=== PATIENT | male | born 1950 | race Caucasian/White ===

== ENCOUNTER 2017-01-26 23:54 | Observation (INO) | payer BC ==
[~2017-01-26] VITALS: Ht 175.3 cm; Wt 79.4 kg
[2017-01-27] MEDS ORDERED: ASPIRIN 324 MG CHEW PO STA (00:41)
[2017-01-27] MEDS ORDERED: SODIUM CHLORIDE 0.9% 1000ML 1,000 ML IV ONE (00:45)
[2017-01-27] MEDS ORDERED: NITROGLYCERIN OINT 2% 1GM PACKET EXT ONE (00:45)
[2017-01-27 01:14] LABS: BASO % 0.2 %; BASO ABS # 0.03 K/uL (0-0.2); COMPLETE YES; EOS % 1.3 %; HEMATOCRIT 45.7 % (42-52); IG% 0.3 %; LYMPH % 8.3 %; LYMPH ABS # 1.16 K/uL (1.2-3.4); MEAN CELL VOLUME 96.2 fL (80-100); MEAN CORPUSCULAR HEMOGLOBIN 33.7 pg (25-34); MEAN PLATELET VOLUME 9.5 fL (7.4-10.4); MONO % 6.8 %; NEUT % 83.1 %; PLATELET COUNT 282 K/uL (130-400); RED BLOOD COUNT 4.75 M/uL (4.7-6.1); WHITE BLOOD COUNT 13.99 K/uL (4.8-10.8)
[2017-01-27 01:16] LABS: POINT OF CARE TROPONIN I < 0.030 ng/ml (0-0.045)
[2017-01-27] MEDS ORDERED: LSN/10125 PO (01:17)
[2017-01-27] MEDS ORDERED: ATOR-22 PO (01:17)
[2017-01-27 01:38] LABS: ALB/GLOB RATIO 1.2 (0.9-2); BUN/CREATININE RATIO 21.7 (10-20); CALCIUM 9.1 mg/dl (8.5-10.1)
[2017-01-27 01:44] LABS: POTASSIUM 3.7 mmol/L (3.5-5.1)
[2017-01-27] MEDS ORDERED: OPTIRAY 320 IV PRN (01:45)
[2017-01-27 03:09] LABS: URINE APPEARANCE CLEAR (CLEAR); URINE BILIRUBIN NEG (NEG); URINE COLOR YELLOW; URINE NITRITE NEG (NEG); URINE SPECIFIC GRAVITY 1.041 (1.000-1.030); UROBILINOGEN NEG (NEG); ZZUR CULT IF INDIC CLEAN CATCH NO
[2017-01-27 03:11] LABS: MANUAL MICROSCOPIC REQUIRED? NO; REVIEW REQ? NO
[2017-01-27] MEDS ORDERED: ONDANSETRON INJ 2 MG/ML 2 ML VIAL IV PRN (06:00)
[2017-01-27] MEDS ORDERED: ACETAMINOPHEN 325 MG TAB PO PRN (06:00)
[2017-01-27] MEDS ORDERED: NITROGLYCERIN 0.4 MG SL PER TAB CHARGE SL PRN (06:00)
[2017-01-27] MEDS ORDERED: POLYETHYLENE (MIRALAX) 17 GM PACK PO PRN (06:00)
[2017-01-27] MEDS ORDERED: IV FLUIDS COMPLETED PRN (06:00)
[2017-01-27] MEDS ORDERED: MoRPHine SULFATE 2 MG/ML CARP IV PRN (06:00)
[2017-01-27] MEDS ORDERED: MoRPHine SULFATE 2 MG/ML CARP IV STA (06:13)
--- NOTE | 2017-01-27 06:22 | History and Physical ---
History & Physical Date & Time of Service: Jan 27, 2017 at 06:07 Chief Complaint: Chest Pain, More When Breathing Deep Primary Care Physician: Bobby Swanson PA-C, HAYLIE Saez History of Present Illness Source: patient 66 yo M presents with acute anterior chest pain with deep breaths that is constant since 8:30pm. He reports that "it got my attention" and has remained constant since that time. No provoking/palliative factors. He denies associated symptoms of SOB, nausea, vomiting, lightheadedness, sweating, palpitations, etc. He denies any recent colds or other infections. He works as a RT doing homecare and denies any recent concerning exposures from that standpoint. He did report that a colleague recently came down with a viral illness and had a high fever--although he was exposed to her he denies cough, fevers, chills, malaise or any other symptoms. ROS is otherwise negative. He denies a history of chest pain or SOB in the past. He has never had a stress test or other cardiac workup. He is very healthy and active biking 30 miles daily. He is a lifelong non-smoker who leads a healthy lifestyle. His father did have a nonfatal WI in his 50s, however, he was also a heavy smoker. The patient does have HTN and HLP for which he takes medications. In the ER, initial workup is unremarkable aside from a CT chest revealing some small mediastinal lymph nodes. EKG reveals sinus rhythm without ischemia, cardiac markers are negative, and pain was not much better after ASA and nitro. Past Medical/Surgical History Medical Problems: (1) Hearing loss Status: Chronic (2) HTN (hypertension) Status: Chronic (3) Hyperlipidemia Status: Chronic (4) Meniere disease Status: Chronic Family History FH: CAD (coronary artery disease) FATHER Social History Smoking Status: Never Smoker Smokeless Tobacco Use: No Alcohol Use: socially Drug Use: none Marital Status: Housing status: lives with significant other Occupational Status: employed (RT with [employer]) Immunizations History of Influenza Vaccine: Unknown History of Tetanus Vaccine?: Unknown History of Pneumococcal: Unknown History of Hepatitis B Vaccine: Unknown Multi-Drug Resistant Organisms History of MDRO: No Allergies Coded Allergies: No Known Allergies (Unverified , 01/27/17) Home Medications Scheduled Atorvastatin (Lipitor), 20 MG PO DAILY Hctz/Lisinopril (Lisinopril/Hctz 10/12.5 Mg), 1 TAB PO DAILY Review of Systems At least ten systems were reviewed and negative except as indicated in HPI. Physical Exam Vital Signs Date Time Temp Pulse Resp B/P (MAP) Pulse Ox O2 Delivery O2 Flow Rate FiO2 01/27/17 05:18 82 01/27/17 04:39 95 16 107/68 98 Room Air 01/27/17 02:25 100 18 109/65 96 Room Air 01/27/17 00:47 96 Room Air 01/27/17 00:25 93 01/27/17 00:01 37.1 94 22 140/86 94 Room Air General Appearance: WD/WN, no apparent distress Head: normocephalic, atraumatic Eyes: normal inspection, PERRL, sclerae normal ENT: pharynx normal Neck: supple, no adenopathy, trachea midline Respiratory/Chest: chest non-tender, lungs clear, normal breath sounds, no respiratory distress, no accessory muscle use Cardiovascular: regular rate, rhythm, no edema, no gallop, no JVD, no murmur, normal peripheral pulses Abdomen/GI: normal bowel sounds, non tender, soft, no organomegaly Back: normal inspection Extremities/Musculoskelatal: normal inspection, no pedal edema Neurologic/Psych: 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, no motor/sensory deficits, alert, normal mood/affect, oriented x 3 Skin: normal color, warm/dry, no rash Diagnostics Laboratory Results 01/27/17 01:00 Red Blood Count 4.75, Mean Corpuscular Volume 96.2, Mean Corpuscular Hemoglobin 33.7, Mean Corpuscular Hemoglobin Concent 35.0, Mean Platelet Volume 9.5, Neutrophils (%) (Auto) 83.1, Lymphocytes (%) (Auto) 8.3, Monocytes (%) (Auto) 6.8, Eosinophils (%) (Auto) 1.3, Basophils (%) (Auto) 0.2, Neutrophils # (Auto) 11.63, Lymphocytes # (Auto) 1.16, Monocytes # (Auto) 0.95, Eosinophils # (Auto) 0.18, Basophils # (Auto) 0.03 01/27/17 01:00 Test 01/27/17 00:57 01/27/17 01:00 01/27/17 02:45 Bedside D-Dimer 332 ng/mlFEU (0-450) Bedside Troponin I < 0.030 ng/ml (0-0.045) White Blood Count 13.99 K/uL (4.8-10.8) Red Blood Count 4.75 M/uL (4.7-6.1) Hemoglobin 16.0 g/dL (14.0-18.0) Hematocrit 45.7 % (42-52) Mean Corpuscular Volume 96.2 fL (80-100) Mean Corpuscular Hemoglobin 33.7 pg (25-34) Mean Corpuscular Hemoglobin Concent 35.0 g/dl (32-36) Platelet Count 282 K/uL (130-400) Mean Platelet Volume 9.5 fL (7.4-10.4) Neutrophils (%) (Auto) 83.1 % Lymphocytes (%) (Auto) 8.3 % Monocytes (%) (Auto) 6.8 % Eosinophils (%) (Auto) 1.3 % Basophils (%) (Auto) 0.2 % Neutrophils # (Auto) 11.63 K/uL (1.4-6.5) Lymphocytes # (Auto) 1.16 K/uL (1.2-3.4) Monocytes # (Auto) 0.95 K/uL (0.11-0.59) Eosinophils # (Auto) 0.18 K/uL (0-0.5) Basophils # (Auto) 0.03 K/uL (0-0.2) RDW Standard Deviation 42.9 fL (36.4-46.3) RDW Coefficient of Variation 12.2 % (11.5-14.5) Immature Granulocyte % (Auto) 0.3 % Immature Granulocyte # (Auto) 0.04 K/uL (0.00-0.02) Anion Gap 9.0 mmol/L (3-11) Est Creatinine Clear Calc Drug Dose 74.7 ml/min Estimated GFR () 91.8 Estimated GFR (Non- 79.2 BUN/Creatinine Ratio 21.7 (10-20) Calcium Level 9.1 mg/dl (8.5-10.1) Total Bilirubin 0.3 mg/dl (0.2-1) Aspartate Amino Transf (AST/SGOT) 26 U/L (15-37) Alanine Aminotransferase (ALT/SGPT) 33 U/L (12-78) Alkaline Phosphatase 61 U/L (45-117) Total Protein 7.7 gm/dl (6.4-8.2) Albumin 4.2 gm/dl (3.4-5.0) Globulin 3.5 gm/dl (2.5-4.0) Albumin/Globulin Ratio 1.2 (0.9-2) Lipase 177 U/L (73-393) Urine Color YELLOW Urine Appearance CLEAR (CLEAR) Urine pH 5.0 (4.5-7.5) Urine Specific Nordman 1.041 (1.000-1.030) Urine Protein NEG (NEG) Urine Glucose (UA) NEG (NEG) Urine Ketones NEG (NEG) Urine Occult Blood NEG (NEG) Urine Nitrite NEG (NEG) Urine Bilirubin NEG (NEG) Urine Urobilinogen NEG (NEG) Urine Leukocyte Esterase NEG (NEG) Results Past 24 Hours Test 01/27/17 00:57 01/27/17 01:00 01/27/17 02:45 Range/Units Bedside D-Dimer 332 0-450 ng/mlFEU Bedside Troponin I < 0.030 0-0.045 ng/ml White Blood Count 13.99 4.8-10.8 K/uL Red Blood Count 4.75 4.7-6.1 M/uL Hemoglobin 16.0 14.0-18.0 g/dL Hematocrit 45.7 42-52 % Mean Corpuscular Volume 96.2 80-100 fL Mean Corpuscular Hemoglobin 33.7 25-34 pg Mean Corpuscular Hemoglobin Concent 35.0 32-36 g/dl Platelet Count 282 130-400 K/uL Mean Platelet Volume 9.5 7.4-10.4 fL Neutrophils (%) (Auto) 83.1 % Lymphocytes (%) (Auto) 8.3 % Monocytes (%) (Auto) 6.8 % Eosinophils (%) (Auto) 1.3 % Basophils (%) (Auto) 0.2 % Neutrophils # (Auto) 11.63 1.4-6.5 K/uL Lymphocytes # (Auto) 1.16 1.2-3.4 K/uL Monocytes # (Auto) 0.95 0.11-0.59 K/uL Eosinophils # (Auto) 0.18 0-0.5 K/uL Basophils # (Auto) 0.03 0-0.2 K/uL RDW Standard Deviation 42.9 36.4-46.3 fL RDW Coefficient of Variation 12.2 11.5-14.5 % Immature Granulocyte % (Auto) 0.3 % Immature Granulocyte # (Auto) 0.04 0.00-0.02 K/uL Sodium Level 138 136-145 mmol/L Potassium Level 3.7 3.5-5.1 mmol/L Chloride Level 101 98-107 mmol/L Carbon Dioxide Level 28 21-32 mmol/L Anion Gap 9.0 3-11 mmol/L Blood Urea Nitrogen 22 7-18 mg/dl Creatinine 1.00 0.60-1.40 mg/dl Est Creatinine Clear Calc Drug Dose 74.7 ml/min Estimated GFR () 91.8 Estimated GFR (Non- 79.2 BUN/Creatinine Ratio 21.7 10-20 Random Glucose 115 70-99 mg/dl Calcium Level 9.1 8.5-10.1 mg/dl Total Bilirubin 0.3 0.2-1 mg/dl Aspartate Amino Transf (AST/SGOT) 26 15-37 U/L Alanine Aminotransferase (ALT/SGPT) 33 12-78 U/L Alkaline Phosphatase 61 45-117 U/L Total Protein 7.7 6.4-8.2 gm/dl Albumin 4.2 3.4-5.0 gm/dl Globulin 3.5 2.5-4.0 gm/dl Albumin/Globulin Ratio 1.2 0.9-2 Lipase 177 73-393 U/L Urine Color YELLOW Urine Appearance CLEAR CLEAR Urine pH 5.0 4.5-7.5 Urine Specific Nordman 1.041 1.000-1.030 Urine Protein NEG NEG Urine Glucose (UA) NEG NEG Urine Ketones NEG NEG Urine Occult Blood NEG NEG Urine Nitrite NEG NEG Urine Bilirubin NEG NEG Urine Urobilinogen NEG NEG Urine Leukocyte Esterase NEG NEG Diagnostic Radiology CT ANGIOGRAM OF THE CHEST CLINICAL HISTORY: Atypical chest pain. COMPARISON STUDY: Chest x-ray dated 01/27/2017. TECHNIQUE: Following the IV administration of 90 cc of Optiray 320, CT angiogram of the chest was performed from the upper abdomen to the thoracic inlet utilizing the pulmonary embolus protocol. Images are reviewed in the axial, sagittal, and coronal planes. 3-D MIPS images are created and assessed. IV contrast was administered without complication. A dose lowering technique was utilized adhering to the principles of ALARA. Examination is modestly degraded by motion artifact. CT DOSE: 301.02 mGy.cm FINDINGS: Thyroid: Imaged portions of the thyroid gland are normal in size and attenuation. Thoracic aorta: The thoracic aorta is normal in caliber and demonstrates standard 3-vessel arch anatomy. No dissection is seen. Pulmonary vasculature: The pulmonary trunk is normal in caliber. There are no filling defects identified in main, lobar, or segmental pulmonary branches to suggest pulmonary embolus. Heart: The heart is top normal in size and there is trace pericardial effusion. There are coronary artery calcifications. Lungs and pleural spaces: Evaluation of the lung parenchyma is modestly degraded by respiratory motion artifact. There is no airspace consolidation typical for pneumonia or pleural effusion. Bibasilar atelectasis is observed. The trachea and central airways are clear. Mediastinum: There is no mediastinal lymphadenopathy. Meera: Clear. Axillae: There is no axillary lymphadenopathy. Upper abdomen: There is a small hiatal hernia. Scattered hepatic cysts measure up to 1.9 cm. There is an indeterminant low-attenuation lesion in the left lower liver seen on image #50 which measures 3.1 cm. A second 1.6 cm indeterminant hypodensity in the right lobe of the diaphragm on image #79. These lesions do not meet CT criteria for simple cysts. There is a 1.1 cm peripherally calcified splenic artery aneurysm. Skeletal structures: No lytic or blastic bony lesions are seen. Mild degenerative change is seen in the shoulders and thoracic spine. There is mild thoracic scoliosis. IMPRESSION: 1. There is no evidence of pulmonary embolus in the main, lobar, or segmental pulmonary arteries. 2. There is no airspace consolidation or pleural effusion. 3. There are 2 indeterminant hepatic lesions measuring up to 3.1 cm. These do not meet CT criteria for simple cysts. Correlation with an MRI of the liver is recommended for definitive characterization. 4. There is a 1.1 cm peripherally calcified splenic artery aneurysm. 5. Tiny hiatal hernia. SINGLE VIEW CHEST CLINICAL HISTORY: Atypical chest pain. FINDINGS: An AP, portable, upright chest radiograph is obtained. No prior studies are available for comparison at the time of dictation. The examination is degraded by portable technique and patient rotation. The cardiomediastinal silhouette is top normal for projection. There is minimal bibasilar atelectasis. The lungs and pleural spaces are otherwise clear. No pneumothorax is seen. The bony thorax is grossly intact. IMPRESSION: No acute cardiopulmonary abnormality. EKG SR 90, LAFB, no ST changes Impression Assessment and Plan 66 yo M with acute chest pain 1. Chest pain-consistent with pleurisy haleigh in setting of mediastinal lymph nodes on wet read overnight but uncertain etiology. ACS a possibility so will trend enzymes throughout the day. Consider stress test for risk stratification. Risk factors for CAD include family history, HTN and HLP. Liver cysts also present-will consider these a source of discomfort and consider dedicated liver imaging based on clinical progression. Poss etiologies include but not limited to mediastinitis, costochondritis, myositis/strain of pectoralis muscle, other lung pathology?, liver abscess? 2. HTN-at goal, cont home regimen (Lis/HCTZ) 3. HLP-Lipitor DVT proph-Lovenox Full code Dispo-telemetry [facility] Telemetry Resuscitation Status FULL RESUSCITATION VTE Prophylaxis VTE Risk Assessment Done? Y/N: Yes Risk Level: Moderate Given or contraindicated: Enoxaparin (Lovenox)SQ Social Service Consult None Apply
[2017-01-27 07:00] VITALS: BP 106/67; PULSE 85; TEMP 37.3; O2SAT 97; Ht 175.3 cm; Wt 79.4 kg
--- NOTE | 2017-01-27 07:17 | DIAGNOSTIC IMAGING REPORT ---
CT ANGIOGRAM OF THE CHEST CLINICAL HISTORY: Atypical chest pain. COMPARISON STUDY: Chest x-ray dated 01/27/2017. TECHNIQUE: Following the IV administration of 90 cc of Optiray 320, CT angiogram of the chest was performed from the upper abdomen to the thoracic inlet utilizing the pulmonary embolus protocol. Images are reviewed in the axial, sagittal, and coronal planes. 3-D MIPS images are created and assessed. IV contrast was administered without complication. A dose lowering technique was utilized adhering to the principles of ALARA. Examination is modestly degraded by motion artifact. CT DOSE: 301.02 mGy.cm FINDINGS: Thyroid: Imaged portions of the thyroid gland are normal in size and attenuation. Thoracic aorta: The thoracic aorta is normal in caliber and demonstrates standard 3-vessel arch anatomy. No dissection is seen. Pulmonary vasculature: The pulmonary trunk is normal in caliber. There are no filling defects identified in main, lobar, or segmental pulmonary branches to suggest pulmonary embolus. Heart: The heart is top normal in size and there is trace pericardial effusion. There are coronary artery calcifications. Lungs and pleural spaces: Evaluation of the lung parenchyma is modestly degraded by respiratory motion artifact. There is no airspace consolidation typical for pneumonia or pleural effusion. Bibasilar atelectasis is observed. The trachea and central airways are clear. Mediastinum: There is no mediastinal lymphadenopathy. Meera: Clear. Axillae: There is no axillary lymphadenopathy. Upper abdomen: There is a small hiatal hernia. Scattered hepatic cysts measure up to 1.9 cm. There is an indeterminant low-attenuation lesion in the left lower liver seen on image #50 which measures 3.1 cm. A second 1.6 cm indeterminant hypodensity in the right lobe of the diaphragm on image #79. These lesions do not meet CT criteria for simple cysts. There is a 1.1 cm peripherally calcified splenic artery aneurysm. Skeletal structures: No lytic or blastic bony lesions are seen. Mild degenerative change is seen in the shoulders and thoracic spine. There is mild thoracic scoliosis. IMPRESSION: 1. There is no evidence of pulmonary embolus in the main, lobar, or segmental pulmonary arteries. 2. There is no airspace consolidation or pleural effusion. 3. There are 2 indeterminant hepatic lesions measuring up to 3.1 cm. These do not meet CT criteria for simple cysts. Correlation with an MRI of the liver is recommended for definitive characterization. 4. There is a 1.1 cm peripherally calcified splenic artery aneurysm. 5. Tiny hiatal hernia. Electronically signed by: Lam Lu M.D. 01/27/2017 7:16 AM Dictated Date/Time: 01/27/2017 7:10 AM
--- NOTE | 2017-01-27 07:37 | DIAGNOSTIC IMAGING REPORT ---
SINGLE VIEW CHEST CLINICAL HISTORY: Atypical chest pain. FINDINGS: An AP, portable, upright chest radiograph is obtained. No prior studies are available for comparison at the time of dictation. The examination is degraded by portable technique and patient rotation. The cardiomediastinal silhouette is top normal for projection. There is minimal bibasilar atelectasis. The lungs and pleural spaces are otherwise clear. No pneumothorax is seen. The bony thorax is grossly intact. IMPRESSION: No acute cardiopulmonary abnormality. Electronically signed by: Lam Lu M.D. 01/27/2017 7:36 AM Dictated Date/Time: 01/27/2017 7:35 AM
[2017-01-27 07:55] LABS: PROTHROMBIN TIME (PATIENT) 10.5 SECONDS (9.0-12.0)
[2017-01-27 08:04] LABS: CKMB/CK RATIO 2.8 (0-3.0)
[2017-01-27] MEDS ORDERED: INFLUENZA VIRUS QUAD VACCINE 0.5 ML SYR IM. ONE (08:30)
[2017-01-27] MEDS ORDERED: INFLUENZA ADMINISTRATION CHARGE ONE (08:30)
[2017-01-27] MEDS ORDERED: ASPIRIN 81 MG ECTAB PO SCH (09:00)
[2017-01-27] MEDS ORDERED: LISINOPRIL/HCTZ 10/12.5MG TAB PO SCH (09:00)
[2017-01-27] MEDS ORDERED: ATORVASTATIN 20 MG TAB PO SCH (09:00)
[2017-01-27] MEDS ORDERED: ENOXAPARIN 40 MG/0.4 ML SYR SC SCH (09:00)
[2017-01-27] MEDS ORDERED: IBUPROFEN 600 MG TAB PO ONE (10:29)
[2017-01-27 11:06] VITALS: BP 115/71; PULSE 86; TEMP 37.1; O2SAT 98
[2017-01-27 13:20] LABS: HEMATOCRIT 37.8 % (42-52); MEAN CELL VOLUME 94.7 fL (80-100); MEAN CORPUSCULAR HEMOGLOBIN 33.8 pg (25-34); MEAN CORPUSCULAR HGB CONC 35.7 g/dl (32-36); MEAN PLATELET VOLUME 9.1 fL (7.4-10.4); PLATELET COUNT 226 K/uL (130-400); RED BLOOD COUNT 3.99 M/uL (4.7-6.1); WHITE BLOOD COUNT 9.44 K/uL (4.8-10.8)
[2017-01-27 13:48] LABS: CKMB/CK RATIO 2.6 (0-3.0)
--- NOTE | 2017-01-27 14:40 | ECHOCARDIOGRAM REPORT ---
*NOTICE TO RECEIVING LIBERTARIAN AGENCY This information is strictly Confidential and protected under [place] law. [place] law prohibits you from making any further disclosure of this information unless further disclosure is expressly permitted by the written consent of the person to whom it pertains or is authorized by law. A general authorization for the release of medical or other information is not sufficient for this purpose. Hospital accepts no responsibility if the information is made available to any other person, INCLUDING THE PATIENT. Interpretation Summary * Name: RJ AHUMADA Study Date: 01/27/2017 11:18 AM BP: 106/67 mmHg * Patient Location: [facility]\S\N275\S\2 HR: 85 * : 1950 (M/d/yyyy) Gender: Male Height: 69 in * Age: 66 yrs Ethnicity: CA Weight: 175 lb * Ordering Physician: Murphy Baca * Referring Physician: Self, Referred * Performed By: Chaya Hubbard RDCS * * Reason For Study: Chest pain * BSA: 2.0 m2 * -- Conclusions -- * The left ventricle is normal in size. * There is normal left ventricular wall thickness. * The left ventricular wall motion is normal. * Ejection Fraction = 65-70%. * Grade I diastolic dysfunction, (abnormal relaxation pattern). * Mild aortic root dilatation. * Aortic valve sclerosis mild, without significant aortic valvular stenosis. * There is mild tricuspid regurgitation. Procedure Details * A complete two-dimensional transthoracic echocardiogram was performed (2D, M-mode, Doppler and color flow Doppler). Left Ventricle * The left ventricle is normal in size. * There is normal left ventricular wall thickness. * Ejection Fraction = 65-70%. * Left ventricular systolic function is normal. * The left ventricular wall motion is normal. Right Ventricle * The right ventricle is normal in size and function. Atria * The left atrial size is normal. * Right atrial size is normal. * No ASD detected; PFO is not assessed. Mitral Valve * The mitral valve anatomy is normal. * There is no mitral valve stenosis. * There is trace mitral regurgitation. Tricuspid Valve * The tricuspid valve anatomy is normal. * There is no tricuspid stenosis. * There is mild tricuspid regurgitation. * Doppler findings do not suggest pulmonary hypertension. Aortic Valve * The aortic valve is trileaflet. * Aortic valve sclerosis mild, without significant aortic valvular stenosis. * No hemodynamically significant valvular aortic stenosis. * No aortic regurgitation is present. Pulmonic Valve * The pulmonic valve is not well visualized. Great Vessels * Mild aortic root dilatation. Pericardium/Pleural * There is no pericardial effusion. Great Vessels * Normal inferior vena cava diameter and respiratory variation suggests normal central venous pressure. Left Ventricular Diastolic Function * Grade I diastolic dysfunction, (abnormal relaxation pattern). MMode 2D Measurements and Calculations IVSd 0.95 cm LVIDd 5.5 cm LVIDs 3.2 cm LVPWd 1.0 cm IVS/LVPW 0.93 FS 40.6 % EDV(Teich) 145.3 ml ESV(Teich) 42.4 ml EF(Teich) 70.8 % EDV(cubed) 163.3 ml ESV(cubed) 34.2 ml EF(cubed) 79.1 % LV mass(C)d 208.5 grams LV mass(C)dI 106.8 grams/m\S\2 SV(Teich) 102.9 ml SI(Teich) 52.7 ml/m\S\2 SV(cubed) 129.1 ml SI(cubed) 66.1 ml/m\S\2 Ao root diam 4.2 cm Ao root area 13.6 cm\S\2 ACS 1.8 cm LA dimension 3.6 cm asc Aorta Diam 3.3 cm LA/Ao 0.86 LVOT diam 2.0 cm LVOT area 3.0 cm\S\2 LVAd ap4 24.5 cm\S\2 LVLd ap4 6.8 cm EDV(MOD-sp4) 72.9 ml EDV(sp4-el) 75.2 ml LVAs ap4 11.8 cm\S\2 LVLs ap4 6.0 cm ESV(MOD-sp4) 19.8 ml ESV(sp4-el) 19.6 ml EF(MOD-sp4) 72.8 % EF(sp4-el) 73.9 % LVAd ap2 22.0 cm\S\2 LVLd ap2 6.4 cm EDV(MOD-sp2) 60.6 ml EDV(sp2-el) 64.2 ml LVAs ap2 11.0 cm\S\2 LVLs ap2 5.4 cm ESV(MOD-sp2) 18.8 ml ESV(sp2-el) 19.0 ml EF(MOD-sp2) 69.0 % EF(sp2-el) 70.4 % LVLd %diff -6.01 % EDV(MOD-bp) 67.4 ml LVLs %diff -11.97 % ESV(MOD-bp) 20.0 ml EF(MOD-bp) 70.3 % SV(MOD-sp4) 53.1 ml SI(MOD-sp4) 27.2 ml/m\S\2 SV(MOD-sp2) 41.8 ml SI(MOD-sp2) 21.4 ml/m\S\2 SV(MOD-bp) 47.4 ml SI(MOD-bp) 24.3 ml/m\S\2 SV(sp4-el) 55.5 ml SI(sp4-el) 28.4 ml/m\S\2 SV(sp2-el) 45.2 ml SI(sp2-el) 23.2 ml/m\S\2 Doppler Measurements and Calculations MV E max agustín 73.9 cm/sec MV A max agustín 90.6 cm/sec MV E/A 0.82 MV dec time 0.17 sec Ao V2 max 150.1 cm/sec Ao max PG 9.0 mmHg Ao max PG (full) 4.1 mmHg JUAN(V,A) 2.2 cm\S\2 JUAN(V,D) 2.2 cm\S\2 LV V1 max PG 4.9 mmHg LV V1 max 110.8 cm/sec PA V2 max 106.1 cm/sec PA max PG 4.5 mmHg PA acc slope 505.9 cm/sec\S\2 PA acc time 0.15 sec PI max agustín 153.6 cm/sec PI max PG 9.4 mmHg PI dec slope 225.4 cm/sec\S\2 PI P1/2t 199.6 msec TR max agustín 243.1 cm/sec PA pr(Accel) 12.3 mmHg
--- NOTE | 2017-01-27 14:54 | Progress Note ---
Internal Med Progress Note Date of Service: Jan 27, 2017. Provider Documentation: SUBJECTIVE: The patient was seen and examined Admitted with what sounds like pleurisy Very active person otherwise without any cardiac symptoms OBJECTIVE: Vital Signs-as noted below Exam: General-No distress at rest Eyes-normal ENT-normal Neck-supple Lungs-Clear to auscultate bilaterally Heart-Regular,no murmur Abdomen-Benign,no masses,bowel sound present Extremities-NO edema Neuro-AAOx3 NO focal neuro deficit Lab data as noted below. ASSESSMENT & PLAN: 66 yo M with acute chest pain Pleurisy Exacerbates with deep breathing CTA-negative for any PE and or 0ther new abnormalities Serial Cheo negative for any ACS ECHO::The left ventricle is normal in size. * There is normal left ventricular wall thickness. * The left ventricular wall motion is normal. * Ejection Fraction = 65-70%. * Grade I diastolic dysfunction, (abnormal relaxation pattern). * Mild aortic root dilatation. * Aortic valve sclerosis mild, without significant aortic valvular stenosis. * There is mild tricuspid regurgitation. Pain resolved with NSAID Will discharged home this PM WCC -improved ,no signs of infection Liver Lesion and Minimal Splenic artery aneurysm In CTA Old finding Will have usual follow up HTN-at goal, cont home regimen (Lis/HCTZ) HLP-Lipitor May have myositis from Statin DVT proph-Lovenox Full code Dispo-telemetry Discharge home this afternoon Vital Signs: Date Time Temp Pulse Resp B/P (MAP) Pulse Ox O2 Delivery O2 Flow Rate FiO2 01/27/17 12:15 Room Air 01/27/17 11:06 37.1 86 18 115/71 (86) 98 Room Air 01/27/17 08:15 Room Air 01/27/17 07:00 37.3 85 18 106/67 97 Room Air 01/27/17 05:18 82 01/27/17 04:39 95 16 107/68 98 Room Air 01/27/17 02:25 100 18 109/65 96 Room Air 01/27/17 00:47 96 Room Air 01/27/17 00:25 93 01/27/17 00:01 37.1 94 22 140/86 94 Room Air Lab Results: Results Past 24 Hours Test 01/27/17 00:57 01/27/17 01:00 01/27/17 02:45 10/6/17 07:22 Range/Units Bedside D-Dimer 332 0-450 ng/mlFEU Bedside Troponin I < 0.030 0-0.045 ng/ml White Blood Count 13.99 4.8-10.8 K/uL Red Blood Count 4.75 4.7-6.1 M/uL Hemoglobin 16.0 14.0-18.0 g/dL Hematocrit 45.7 42-52 % Mean Corpuscular Volume 96.2 80-100 fL Mean Corpuscular Hemoglobin 33.7 25-34 pg Mean Corpuscular Hemoglobin Concent 35.0 32-36 g/dl Platelet Count 282 130-400 K/uL Mean Platelet Volume 9.5 7.4-10.4 fL Neutrophils (%) (Auto) 83.1 % Lymphocytes (%) (Auto) 8.3 % Monocytes (%) (Auto) 6.8 % Eosinophils (%) (Auto) 1.3 % Basophils (%) (Auto) 0.2 % Neutrophils # (Auto) 11.63 1.4-6.5 K/uL Lymphocytes # (Auto) 1.16 1.2-3.4 K/uL Monocytes # (Auto) 0.95 0.11-0.59 K/uL Eosinophils # (Auto) 0.18 0-0.5 K/uL Basophils # (Auto) 0.03 0-0.2 K/uL RDW Standard Deviation 42.9 36.4-46.3 fL RDW Coefficient of Variation 12.2 11.5-14.5 % Immature Granulocyte % (Auto) 0.3 % Immature Granulocyte # (Auto) 0.04 0.00-0.02 K/uL Sodium Level 138 136-145 mmol/L Potassium Level 3.7 3.5-5.1 mmol/L Chloride Level 101 98-107 mmol/L Carbon Dioxide Level 28 21-32 mmol/L Anion Gap 9.0 3-11 mmol/L Blood Urea Nitrogen 22 7-18 mg/dl Creatinine 1.00 0.60-1.40 mg/dl Est Creatinine Clear Calc Drug Dose 74.7 ml/min Estimated GFR () 91.8 Estimated GFR (Non- 79.2 BUN/Creatinine Ratio 21.7 10-20 Random Glucose 115 70-99 mg/dl Calcium Level 9.1 8.5-10.1 mg/dl Total Bilirubin 0.3 0.2-1 mg/dl Aspartate Amino Transf (AST/SGOT) 26 15-37 U/L Alanine Aminotransferase (ALT/SGPT) 33 12-78 U/L Alkaline Phosphatase 61 45-117 U/L Total Protein 7.7 6.4-8.2 gm/dl Albumin 4.2 3.4-5.0 gm/dl Globulin 3.5 2.5-4.0 gm/dl Albumin/Globulin Ratio 1.2 0.9-2 Lipase 177 73-393 U/L Urine Color YELLOW Urine Appearance CLEAR CLEAR Urine pH 5.0 4.5-7.5 Urine Specific [place] 1.041 1.000-1.030 Urine Protein NEG NEG Urine Glucose (UA) NEG NEG Urine Ketones NEG NEG Urine Occult Blood NEG NEG Urine Nitrite NEG NEG Urine Bilirubin NEG NEG Urine Urobilinogen NEG NEG Urine Leukocyte Esterase NEG NEG Prothrombin Time 10.5 9.0-12.0 SECONDS Prothromb Time International Ratio 1.0 0.9-1.1 Total Creatine Kinase 54 39-308 U/L Creatine Kinase MB 1.5 0.5-3.6 ng/ml Creatine Kinase MB Ratio 2.8 0-3.0 Troponin I < 0.015 0-0.045 ng/ml Hepatitis C Antibody Screen NEG NEG Test 01/27/17 13:03 Range/Units White Blood Count 9.44 4.8-10.8 K/uL Red Blood Count 3.99 4.7-6.1 M/uL Hemoglobin 13.5 14.0-18.0 g/dL Hematocrit 37.8 42-52 % Mean Corpuscular Volume 94.7 80-100 fL Mean Corpuscular Hemoglobin 33.8 25-34 pg Mean Corpuscular Hemoglobin Concent 35.7 32-36 g/dl RDW Standard Deviation 42.2 36.4-46.3 fL RDW Coefficient of Variation 12.3 11.5-14.5 % Platelet Count 226 130-400 K/uL Mean Platelet Volume 9.1 7.4-10.4 fL Total Creatine Kinase 57 39-308 U/L Creatine Kinase MB 1.5 0.5-3.6 ng/ml Creatine Kinase MB Ratio 2.6 0-3.0 Troponin I < 0.015 0-0.045 ng/ml
--- NOTE | 2017-01-27 14:56 | Discharge Instructions ---
Discharge Instructions Date of Service Jan 27, 2017. Admission Reason for Admission: Chest Pain Discharge Discharge Diagnosis / Problem: Pleuritic Chest pain-resolved,No Pul Embolism and or pericarditis/ACS Discharge Goals Goal(s): Prevent Disease Progression Activity Recommendations Activity Limitations: resume your previous activity . Instructions / Follow-Up Instructions / Follow-Up Please make an appointment with your PCP in 1 week Current Hospital Diet Patient's current hospital diet: AHA Diet (Heart Healthy) Discharge Diet Recommended Diet: AHA Diet (Heart Healthy) Pending Studies Studies pending at discharge: no Medical Emergencies . Who to Call and When: Medical Emergencies: If at any time you feel your situation is an emergency, please call 911 immediately. . Non-Emergent Contact Non-Emergency issues call your: Primary Care Provider . Past History Medical & Surgical History: (1) HTN (hypertension) (2) Hyperlipidemia (3) Hearing loss (4) Chest pain . "Provider Documentation" section prepared by Murphy Baca. . VTE Core Measure Inpt VTE Proph given/why not?: Enoxaparin (Lovenox)SQ
[2017-01-27 15:03] VITALS: BP 115/71; PULSE 86; TEMP 37.1; O2SAT 98
[2017-01-27] MEDS ORDERED: IBUPROFEN 600 MG TAB PO SCH (16:00)
--- NOTE | 2017-01-28 06:38 | EMERGENCY ROOM VISIT NOTE ---
History First contact with patient: 00:13 Chief Complaint: CHEST PAIN Stated Complaint: CHEST PAIN Nursing Triage Summary: see triage note History of Present Illness The patient is a 66 year old male who presents to the Emergency Room with complaints of chest pain over the past day. The patient's symptoms initially began underneath the left shoulder anteriorly. He states that the discomfort slowly migrated across the front of his chest and worsens with deep inspiration. The patient's primary discomfort is central in the chest and does not radiate. He does not have lightheadedness, dizziness, neck pain, jaw pain, back pain, or abdominal pain. The patient is usually very active, and will often cycle 20-30 miles on the weekends. He has a history of dyslipidemia and hypertension but no other significant risk factors himself. There is a family history of myocardial infarction at a very young age with his father. The patient has not had recent travel history or history of DVT/PE. No recent illness such as fever or URI symptoms. 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 He rates his current discomfort a 5/ 10. He does not identify other aggravating or alleviating factors. Review of Systems More than 10 systems were reviewed and otherwise negative with the exception of history of present illness. 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 Vital signs stable. GENERAL: Well-developed, well-nourished, white male, who is in no acute distress and resting comfortably. Patient is cooperative with the examination. NECK: Supple without nuchal rigidity. No lymphadenopathy. No thyromegaly. Cervical spine is nontender. HEART: Regular rate and rhythm without murmurs gallops or rubs. LUNGS: Clear to auscultation bilaterally without wheezes, rales or rhonchi. No retractions or accessory muscle use. CHEST WALL: Mild tenderness across the anterior superior chest wall. No crepitus or flail chest. No rash or significant lesions. ABDOMEN: Positive normal bowel sounds x 4. Soft, nontender, without masses or organomegaly. No guarding or rebound tenderness. MUSCULOSKELETAL: No muscle atrophy, erythema, or edema noted. Full range of motion without joint tenderness in all extremities. Medical Decision & Procedures ER Provider Diagnostic Interpretation: SINGLE VIEW CHEST CLINICAL HISTORY: Atypical chest pain. FINDINGS: An AP, portable, upright chest radiograph is obtained. No prior studies are available for comparison at the time of dictation. The examination is degraded by portable technique and patient rotation. The cardiomediastinal silhouette is top normal for projection. There is minimal bibasilar atelectasis. The lungs and pleural spaces are otherwise clear. No pneumothorax is seen. The bony thorax is grossly intact. IMPRESSION: No acute cardiopulmonary abnormality. CT ANGIOGRAM OF THE CHEST CLINICAL HISTORY: Atypical chest pain. COMPARISON STUDY: Chest x-ray dated 01/27/2017. TECHNIQUE: Following the IV administration of 90 cc of Optiray 320, CT angiogram of the chest was performed from the upper abdomen to the thoracic inlet utilizing the pulmonary embolus protocol. Images are reviewed in the axial, sagittal, and coronal planes. 3-D MIPS images are created and assessed. IV contrast was administered without complication. A dose lowering technique was utilized adhering to the principles of ALARA. Examination is modestly degraded by motion artifact. CT DOSE: 301.02 mGy.cm FINDINGS: Thyroid: Imaged portions of the thyroid gland are normal in size and attenuation. Thoracic aorta: The thoracic aorta is normal in caliber and demonstrates standard 3-vessel arch anatomy. No dissection is seen. Pulmonary vasculature: The pulmonary trunk is normal in caliber. There are no filling defects identified in main, lobar, or segmental pulmonary branches to suggest pulmonary embolus. Heart: The heart is top normal in size and there is trace pericardial effusion. There are coronary artery calcifications. Lungs and pleural spaces: Evaluation of the lung parenchyma is modestly degraded by respiratory motion artifact. There is no airspace consolidation typical for pneumonia or pleural effusion. Bibasilar atelectasis is observed. The trachea and central airways are clear. Mediastinum: There is no mediastinal lymphadenopathy. Meera: Clear. Axillae: There is no axillary lymphadenopathy. Upper abdomen: There is a small hiatal hernia. Scattered hepatic cysts measure up to 1.9 cm. There is an indeterminant low-attenuation lesion in the left lower liver seen on image #50 which measures 3.1 cm. A second 1.6 cm indeterminant hypodensity in the right lobe of the diaphragm on image #79. These lesions do not meet CT criteria for simple cysts. There is a 1.1 cm peripherally calcified splenic artery aneurysm. Skeletal structures: No lytic or blastic bony lesions are seen. Mild degenerative change is seen in the shoulders and thoracic spine. There is mild thoracic scoliosis. IMPRESSION: 1. There is no evidence of pulmonary embolus in the main, lobar, or segmental pulmonary arteries. 2. There is no airspace consolidation or pleural effusion. 3. There are 2 indeterminant hepatic lesions measuring up to 3.1 cm. These do not meet CT criteria for simple cysts. Correlation with an MRI of the liver is recommended for definitive characterization. 4. There is a 1.1 cm peripherally calcified splenic artery aneurysm. 5. Tiny hiatal hernia. Laboratory Results 01/27/17 01:00 Test 01/27/17 00:57 01/27/17 01:00 01/27/17 02:45 Bedside D-Dimer 332 ng/mlFEU (0-450) Bedside Troponin I < 0.030 ng/ml (0-0.045) Immature Granulocyte % (Auto) 0.3 % White Blood Count 13.99 K/uL (4.8-10.8) Red Blood Count 4.75 M/uL (4.7-6.1) Hemoglobin 16.0 g/dL (14.0-18.0) Hematocrit 45.7 % (42-52) Mean Corpuscular Volume 96.2 fL (80-100) Mean Corpuscular Hemoglobin 33.7 pg (25-34) Mean Corpuscular Hemoglobin Concent 35.0 g/dl (32-36) Platelet Count 282 K/uL (130-400) Mean Platelet Volume 9.5 fL (7.4-10.4) Neutrophils (%) (Auto) 83.1 % Lymphocytes (%) (Auto) 8.3 % Monocytes (%) (Auto) 6.8 % Eosinophils (%) (Auto) 1.3 % Basophils (%) (Auto) 0.2 % Neutrophils # (Auto) 11.63 K/uL (1.4-6.5) Lymphocytes # (Auto) 1.16 K/uL (1.2-3.4) Monocytes # (Auto) 0.95 K/uL (0.11-0.59) Eosinophils # (Auto) 0.18 K/uL (0-0.5) Basophils # (Auto) 0.03 K/uL (0-0.2) Immature Granulocyte # (Auto) 0.04 K/uL (0.00-0.02) Anion Gap 9.0 mmol/L (3-11) Est Creatinine Clear Calc Drug Dose 74.7 ml/min Estimated GFR () 91.8 Estimated GFR (Non- 79.2 BUN/Creatinine Ratio 21.7 (10-20) Calcium Level 9.1 mg/dl (8.5-10.1) Total Bilirubin 0.3 mg/dl (0.2-1) Aspartate Amino Transf (AST/SGOT) 26 U/L (15-37) Alanine Aminotransferase (ALT/SGPT) 33 U/L (12-78) Alkaline Phosphatase 61 U/L (45-117) Total Protein 7.7 gm/dl (6.4-8.2) Albumin 4.2 gm/dl (3.4-5.0) Globulin 3.5 gm/dl (2.5-4.0) Albumin/Globulin Ratio 1.2 (0.9-2) Lipase 177 U/L (73-393) Urine Color YELLOW Urine Appearance CLEAR (CLEAR) Urine pH 5.0 (4.5-7.5) Urine Specific [place] 1.041 (1.000-1.030) Urine Protein NEG (NEG) Urine Glucose (UA) NEG (NEG) Urine Ketones NEG (NEG) Urine Occult Blood NEG (NEG) Urine Nitrite NEG (NEG) Urine Bilirubin NEG (NEG) Urine Urobilinogen NEG (NEG) Urine Leukocyte Esterase NEG (NEG) Medications Administered Medications (Trade) Dose Ordered Sig/Yvan Route Start Time Stop Time Status Last Admin Dose Admin Sodium Chloride 1,000 ml @ 999 mls/hr Q1H1M ONCE IV 01/27/17 00:45 01/27/17 01:45 DC 01/27/17 00:57 999 MLS/HR Aspirin (Aspirin Chew) 324 mg NOW STAT PO 01/27/17 00:41 01/27/17 00:43 DC 01/27/17 01:02 324 MG Nitroglycerin (Nitroglycerin 2% Oint) 1 inch NOW ONCE EXT 01/27/17 00:45 01/27/17 00:46 DC 01/27/17 01:03 1 INCH ECG Change: Normal sinus rhythm @90bpm Left axis deviation Left anterior fascicular block Abnormal ECG No previous ECGs available Confirmed by JENSEN LINO MD ([id number]) on 01/27/2017 5:19:32 PM ED Course Physical exam and history were performed. Nursing notes, EMR, and Medication List were personally reviewed. Patient appears to have chest pain symptoms that initially began on the left side of the chest and now more in the upper border of the chest. The patient is usually healthy and has not had symptoms like this in the past. EKG was performed and does not show evidence of distinct ST elevation or obvious ischemia. IV access was established and labs were obtained. Chest x-ray was performed. The patient's blood work is as above and was reviewed. He does have an elevated white blood cell count of nearly 14,000. He does not have significant anemia, bandemia, or gross electrolyte imbalance. Lipase and transaminases are nondiagnostic. Troponin and d-dimer 1 are both negative. I did provide him aspirin and Nitropaste here in the department. Because of his elevated white blood cell count and chest pain I did elect to perform CT scan of his chest. CT scan is as above and is without significant acute findings at this time. The patient did have some improvement of his pain with the aspirin and Nitropaste. I had a lengthy discussion with the patient regarding options of care. He does have some risk factors with hypertension and dyslipidemia. There is also a cardiac history in the family. The patient is comfortable with staying in the hospital for further management. I did discuss the case with the on-call hospitalist. Please see their dictation for further patient course, plan, and disposition. The chart was completed utilizing [employer] Speech Voice Recognition Software. Grammatical errors, random word insertions, pronoun errors, and incomplete sentences are an occasional consequence of this system due to software limitations, ambient noise, and hardware issues. Any formal questions or concerns about the content, text, or information contained within the body of this dictation should be directly addressed to the provider for clarification. . Medical Decision Differential diagnosis includes, but is not limited to: Myocardial infarction, dysrhythmia, pericarditis, pneumothorax, aortic aneurysm/dissection, DVT/PE, anxiety, GERD, PUD, electrolyte imbalance, thyroid disorder, pneumonia, bronchitis, pancreatitis, and others Impression Primary Impression: Chest pain Departure Information Dispostion Admitted as an inpatient Condition FAIR Referrals No Doctor, Assigned (PCP) Forms Call Back Authorization, HOME CARE DOCUMENTATION FORM, IMPORTANT VISIT INFORMATION Patient Instructions [facility]
--- NOTE | 2017-01-28 08:10 | Discharge Summary ---
Discharge Summary Date of Service Jan 28, 2017. Discharge Summary Admission Date: Jan 27, 2017 at 05:38 Discharge Date: Jan 27, 2017 Discharge Disposition: Home Principal Diagnosis: Pleuritic Chest pain-resolved,No Pul Embolism and or pericarditis/ACS Secondary Diagnoses/Problems: Please see H&P and Hospital Progress note Medication Reconciliation Continued Medications: Atorvastatin (Lipitor) 20 Mg Tab 20 MG PO DAILY, TAB Hctz/Lisinopril (Lisinopril/Hctz 10/12.5 Mg) 1 Ea Tab 1 TAB PO DAILY for 30 Days, #30 TAB 5 Refills Admission Information HPI (per Admitting provider): 66 yo M presents with acute anterior chest pain with deep breaths that is constant since 8:30pm. He reports that "it got my attention" and has remained constant since that time. No provoking/palliative factors. He denies associated symptoms of SOB, nausea, vomiting, lightheadedness, sweating, palpitations, etc. He denies any recent colds or other infections. He works as a RT doing homecare and denies any recent concerning exposures from that standpoint. He did report that a colleague recently came down with a viral illness and had a high fever--although he was exposed to her he denies cough, fevers, chills, malaise or any other symptoms. ROS is otherwise negative. He denies a history of chest pain or SOB in the past. He has never had a stress test or other cardiac workup. He is very healthy and active biking 30 miles daily. He is a lifelong non-smoker who leads a healthy lifestyle. His father did have a nonfatal LA in his 50s, however, he was also a heavy smoker. The patient does have HTN and HLP for which he takes medications. In the ER, initial workup is unremarkable aside from a CT chest revealing some small mediastinal lymph nodes. EKG reveals sinus rhythm without ischemia, cardiac markers are negative, and pain was not much better after ASA and nitro. Past Medical/Surgical History Medical Problems: (1) Hearing loss Status: Chronic (2) HTN (hypertension) Status: Chronic (3) Hyperlipidemia Status: Chronic (4) Meniere disease Status: Chronic Family History FH: CAD (coronary artery disease) FATHER Social History Smoking Status: Never Smoker Smokeless Tobacco Use: No Alcohol Use: socially Drug Use: none Marital Status: Housing status: lives with significant other Occupational Status: employed (RT with [employer]) Immunizations History of Influenza Vaccine: Unknown History of Tetanus Vaccine?: Unknown History of Pneumococcal: Unknown History of Hepatitis B Vaccine: Unknown Multi-Drug Resistant Organisms History of MDRO: No Allergies Coded Allergies: No Known Allergies (Unverified , 01/27/17) Home Medications Scheduled Atorvastatin (Lipitor), 20 MG PO DAILY Hctz/Lisinopril (Lisinopril/Hctz 10/12.5 Mg), 1 TAB PO DAILY Review of Systems At least ten systems were reviewed and negative except as indicated in HPI. Physical Ex - H&P Physical Exam Vital Signs Date Time Temp Pulse Resp B/P (MAP) Pulse Ox O2 Delivery O2 Flow Rate FiO2 01/27/17 05:18 82 01/27/17 04:39 95 16 107/68 98 Room Air 01/27/17 02:25 100 18 109/65 96 Room Air 01/27/17 00:47 96 Room Air 01/27/17 00:25 93 01/27/17 00:01 37.1 94 22 140/86 94 Room Air General Appearance: WD/WN, no apparent distress Head: normocephalic, atraumatic Eyes: normal inspection, PERRL, sclerae normal ENT: pharynx normal Neck: supple, no adenopathy, trachea midline Respiratory/Chest: chest non-tender, lungs clear, normal breath sounds, no respiratory distress, no accessory muscle use Cardiovascular: regular rate, rhythm, no edema, no gallop, no JVD, no murmur, normal peripheral pulses Abdomen/GI: normal bowel sounds, non tender, soft, no organomegaly Back: normal inspection Extremities/Musculoskelatal: normal inspection, no pedal edema Neurologic/Psych: camp director II-XII nml as tested, no motor/sensory deficits, alert, normal mood/affect, oriented x 3 Skin: normal color, warm/dry, no rash Diagnostics - H&P Diagnostics Laboratory Results 01/27/17 01:00 Red Blood Count 4.75, Mean Corpuscular Volume 96.2, Mean Corpuscular Hemoglobin 33.7, Mean Corpuscular Hemoglobin Concent 35.0, Mean Platelet Volume 9.5, Neutrophils (%) (Auto) 83.1, Lymphocytes (%) (Auto) 8.3, Monocytes (%) (Auto) 6.8, Eosinophils (%) (Auto) 1.3, Basophils (%) (Auto) 0.2, Neutrophils # (Auto) 11.63, Lymphocytes # (Auto) 1.16, Monocytes # (Auto) 0.95, Eosinophils # (Auto) 0.18, Basophils # (Auto) 0.03 01/27/17 01:00 Test 01/27/17 00:57 01/27/17 01:00 01/27/17 02:45 Bedside D-Dimer 332 ng/mlFEU (0-450) Bedside Troponin I < 0.030 ng/ml (0-0.045) White Blood Count 13.99 K/uL (4.8-10.8) Red Blood Count 4.75 M/uL (4.7-6.1) Hemoglobin 16.0 g/dL (14.0-18.0) Hematocrit 45.7 % (42-52) Mean Corpuscular Volume 96.2 fL (80-100) Mean Corpuscular Hemoglobin 33.7 pg (25-34) Mean Corpuscular Hemoglobin Concent 35.0 g/dl (32-36) Platelet Count 282 K/uL (130-400) Mean Platelet Volume 9.5 fL (7.4-10.4) Neutrophils (%) (Auto) 83.1 % Lymphocytes (%) (Auto) 8.3 % Monocytes (%) (Auto) 6.8 % Eosinophils (%) (Auto) 1.3 % Basophils (%) (Auto) 0.2 % Neutrophils # (Auto) 11.63 K/uL (1.4-6.5) Lymphocytes # (Auto) 1.16 K/uL (1.2-3.4) Monocytes # (Auto) 0.95 K/uL (0.11-0.59) Eosinophils # (Auto) 0.18 K/uL (0-0.5) Basophils # (Auto) 0.03 K/uL (0-0.2) RDW Standard Deviation 42.9 fL (36.4-46.3) RDW Coefficient of Variation 12.2 % (11.5-14.5) Immature Granulocyte % (Auto) 0.3 % Immature Granulocyte # (Auto) 0.04 K/uL (0.00-0.02) Anion Gap 9.0 mmol/L (3-11) Est Creatinine Clear Calc Drug Dose 74.7 ml/min Estimated GFR () 91.8 Estimated GFR (Non- 79.2 BUN/Creatinine Ratio 21.7 (10-20) Calcium Level 9.1 mg/dl (8.5-10.1) Total Bilirubin 0.3 mg/dl (0.2-1) Aspartate Amino Transf (AST/SGOT) 26 U/L (15-37) Alanine Aminotransferase (ALT/SGPT) 33 U/L (12-78) Alkaline Phosphatase 61 U/L (45-117) Total Protein 7.7 gm/dl (6.4-8.2) Albumin 4.2 gm/dl (3.4-5.0) Globulin 3.5 gm/dl (2.5-4.0) Albumin/Globulin Ratio 1.2 (0.9-2) Lipase 177 U/L (73-393) Urine Color YELLOW Urine Appearance CLEAR (CLEAR) Urine pH 5.0 (4.5-7.5) Urine Specific [place] 1.041 (1.000-1.030) Urine Protein NEG (NEG) Urine Glucose (UA) NEG (NEG) Urine Ketones NEG (NEG) Urine Occult Blood NEG (NEG) Urine Nitrite NEG (NEG) Urine Bilirubin NEG (NEG) Urine Urobilinogen NEG (NEG) Urine Leukocyte Esterase NEG (NEG) Results Past 24 Hours Test 01/27/17 00:57 01/27/17 01:00 01/27/17 02:45 Range/Units Bedside D-Dimer 332 0-450 ng/mlFEU Bedside Troponin I < 0.030 0-0.045 ng/ml White Blood Count 13.99 4.8-10.8 K/uL Red Blood Count 4.75 4.7-6.1 M/uL Hemoglobin 16.0 14.0-18.0 g/dL Hematocrit 45.7 42-52 % Mean Corpuscular Volume 96.2 80-100 fL Mean Corpuscular Hemoglobin 33.7 25-34 pg Mean Corpuscular Hemoglobin Concent 35.0 32-36 g/dl Platelet Count 282 130-400 K/uL Mean Platelet Volume 9.5 7.4-10.4 fL Neutrophils (%) (Auto) 83.1 % Lymphocytes (%) (Auto) 8.3 % Monocytes (%) (Auto) 6.8 % Eosinophils (%) (Auto) 1.3 % Basophils (%) (Auto) 0.2 % Neutrophils # (Auto) 11.63 1.4-6.5 K/uL Lymphocytes # (Auto) 1.16 1.2-3.4 K/uL Monocytes # (Auto) 0.95 0.11-0.59 K/uL Eosinophils # (Auto) 0.18 0-0.5 K/uL Basophils # (Auto) 0.03 0-0.2 K/uL RDW Standard Deviation 42.9 36.4-46.3 fL RDW Coefficient of Variation 12.2 11.5-14.5 % Immature Granulocyte % (Auto) 0.3 % Immature Granulocyte # (Auto) 0.04 0.00-0.02 K/uL Sodium Level 138 136-145 mmol/L Potassium Level 3.7 3.5-5.1 mmol/L Chloride Level 101 98-107 mmol/L Carbon Dioxide Level 28 21-32 mmol/L Anion Gap 9.0 3-11 mmol/L Blood Urea Nitrogen 22 7-18 mg/dl Creatinine 1.00 0.60-1.40 mg/dl Est Creatinine Clear Calc Drug Dose 74.7 ml/min Estimated GFR () 91.8 Estimated GFR (Non- 79.2 BUN/Creatinine Ratio 21.7 10-20 Random Glucose 115 70-99 mg/dl Calcium Level 9.1 8.5-10.1 mg/dl Total Bilirubin 0.3 0.2-1 mg/dl Aspartate Amino Transf (AST/SGOT) 26 15-37 U/L Alanine Aminotransferase (ALT/SGPT) 33 12-78 U/L Alkaline Phosphatase 61 45-117 U/L Total Protein 7.7 6.4-8.2 gm/dl Albumin 4.2 3.4-5.0 gm/dl Globulin 3.5 2.5-4.0 gm/dl Albumin/Globulin Ratio 1.2 0.9-2 Lipase 177 73-393 U/L Urine Color YELLOW Urine Appearance CLEAR CLEAR Urine pH 5.0 4.5-7.5 Urine Specific [place] 1.041 1.000-1.030 Urine Protein NEG NEG Urine Glucose (UA) NEG NEG Urine Ketones NEG NEG Urine Occult Blood NEG NEG Urine Nitrite NEG NEG Urine Bilirubin NEG NEG Urine Urobilinogen NEG NEG Urine Leukocyte Esterase NEG NEG Diagnostic Radiology CT ANGIOGRAM OF THE CHEST CLINICAL HISTORY: Atypical chest pain. COMPARISON STUDY: Chest x-ray dated 01/27/2017. TECHNIQUE: Following the IV administration of 90 cc of Optiray 320, CT angiogram of the chest was performed from the upper abdomen to the thoracic inlet utilizing the pulmonary embolus protocol. Images are reviewed in the axial, sagittal, and coronal planes. 3-D MIPS images are created and assessed. IV contrast was administered without complication. A dose lowering technique was utilized adhering to the principles of ALARA. Examination is modestly degraded by motion artifact. CT DOSE: 301.02 mGy.cm FINDINGS: Thyroid: Imaged portions of the thyroid gland are normal in size and attenuation. Thoracic aorta: The thoracic aorta is normal in caliber and demonstrates standard 3-vessel arch anatomy. No dissection is seen. Pulmonary vasculature: The pulmonary trunk is normal in caliber. There are no filling defects identified in main, lobar, or segmental pulmonary branches to suggest pulmonary embolus. Heart: The heart is top normal in size and there is trace pericardial effusion. There are coronary artery calcifications. Lungs and pleural spaces: Evaluation of the lung parenchyma is modestly degraded by respiratory motion artifact. There is no airspace consolidation typical for pneumonia or pleural effusion. Bibasilar atelectasis is observed. The trachea and central airways are clear. Mediastinum: There is no mediastinal lymphadenopathy. Meera: Clear. Axillae: There is no axillary lymphadenopathy. Upper abdomen: There is a small hiatal hernia. Scattered hepatic cysts measure up to 1.9 cm. There is an indeterminant low-attenuation lesion in the left lower liver seen on image #50 which measures 3.1 cm. A second 1.6 cm indeterminant hypodensity in the right lobe of the diaphragm on image #79. These lesions do not meet CT criteria for simple cysts. There is a 1.1 cm peripherally calcified splenic artery aneurysm. Skeletal structures: No lytic or blastic bony lesions are seen. Mild degenerative change is seen in the shoulders and thoracic spine. There is mild thoracic scoliosis. IMPRESSION: 1. There is no evidence of pulmonary embolus in the main, lobar, or segmental pulmonary arteries. 2. There is no airspace consolidation or pleural effusion. 3. There are 2 indeterminant hepatic lesions measuring up to 3.1 cm. These do not meet CT criteria for simple cysts. Correlation with an MRI of the liver is recommended for definitive characterization. 4. There is a 1.1 cm peripherally calcified splenic artery aneurysm. 5. Tiny hiatal hernia. SINGLE VIEW CHEST CLINICAL HISTORY: Atypical chest pain. FINDINGS: An AP, portable, upright chest radiograph is obtained. No prior studies are available for comparison at the time of dictation. The examination is degraded by portable technique and patient rotation. The cardiomediastinal silhouette is top normal for projection. There is minimal bibasilar atelectasis. The lungs and pleural spaces are otherwise clear. No pneumothorax is seen. The bony thorax is grossly intact. IMPRESSION: No acute cardiopulmonary abnormality. EKG SR 90, LAFB, no ST changes Impression - H&P Impression Assessment and Plan 66 yo M with acute chest pain 1. Chest pain-consistent with pleurisy haleigh in setting of mediastinal lymph nodes on wet read overnight but uncertain etiology. ACS a possibility so will trend enzymes throughout the day. Consider stress test for risk stratification. Risk factors for CAD include family history, HTN and HLP. Liver cysts also present-will consider these a source of discomfort and consider dedicated liver imaging based on clinical progression. Poss etiologies include but not limited to mediastinitis, costochondritis, myositis/strain of pectoralis muscle, other lung pathology?, liver abscess? 2. HTN-at goal, cont home regimen (Lis/HCTZ) 3. HLP-Lipitor DVT proph-Lovenox Full code Dispo-telemetry Lulu Miller DO [facility] Hospitalist Level of Care Telemetry Resuscitation Status FULL RESUSCITATION VTE Prophylaxis VTE Risk Assessment Done? Y/N: Yes Risk Level: Moderate Given or contraindicated: Enoxaparin (Lovenox)SQ Social Service Consult None Apply Physical Exam (per Admitting): General Appearance: WD/WN, no apparent distress Head: normocephalic, atraumatic Eyes: normal inspection, PERRL, sclerae normal ENT: pharynx normal Neck: supple, no adenopathy, trachea midline Respiratory/Chest: chest non-tender, lungs clear, normal breath sounds, no respiratory distress, no accessory muscle use Cardiovascular: regular rate, rhythm, no edema, no gallop, no JVD, no murmur , normal peripheral pulses Abdomen/GI: normal bowel sounds, non tender, soft, no organomegaly Back: normal inspection Extremities/Musculoskelatal: normal inspection, no pedal edema Neurologic/Psych: camp director II-XII nml as tested, no motor/sensory deficits, alert , normal mood/affect, oriented x 3 Skin: normal color, warm/dry, no rash Hospital Course 66 yo M with acute chest pain Pleurisy Exacerbates with deep breathing CTA-negative for any PE and or 0ther new abnormalities Serial Cheo negative for any ACS ECHO::The left ventricle is normal in size. * There is normal left ventricular wall thickness. * The left ventricular wall motion is normal. * Ejection Fraction = 65-70%. * Grade I diastolic dysfunction, (abnormal relaxation pattern). * Mild aortic root dilatation. * Aortic valve sclerosis mild, without significant aortic valvular stenosis. * There is mild tricuspid regurgitation. Pain resolved with NSAID Will discharged home this PM WCC -improved ,no signs of infection Liver Lesion and Minimal Splenic artery aneurysm In CTA Old finding Will have usual follow up HTN-at goal, cont home regimen (Lis/HCTZ) HLP-Lipitor May have myositis from Statin DVT proph-Lovenox Full code Dispo-telemetry Discharge home this afternoon Total time spent on discharge =35 minutes This includes examination of the patient, discharge planning, medication reconciliation, and communication with other providers. Discharge Instructions Date of Service Jan 27, 2017. Admission Reason for Admission: Chest Pain Discharge Discharge Diagnosis / Problem: Pleuritic Chest pain-resolved,No Pul Embolism and or pericarditis/ACS Discharge Goals Goal(s): Prevent Disease Progression Activity Recommendations Activity Limitations: resume your previous activity . Instructions / Follow-Up Instructions / Follow-Up Please make an appointment with your PCP in 1 week Current Hospital Diet Patient's current hospital diet: AHA Diet (Heart Healthy) Discharge Diet Recommended Diet: AHA Diet (Heart Healthy) Pending Studies Studies pending at discharge: no Medical Emergencies . Who to Call and When: Medical Emergencies: If at any time you feel your situation is an emergency, please call 911 immediately. . Non-Emergent Contact Non-Emergency issues call your: Primary Care Provider . Past History Medical & Surgical History: (1) HTN (hypertension) (2) Hyperlipidemia (3) Hearing loss (4) Chest pain . "Provider Documentation" section prepared by Murphy Baca. . VTE Core Measure Inpt VTE Proph given/why not?: Enoxaparin (Lovenox)SQ <Electronically signed by Murphy Baca M.D.> Signed: 01/27/17 1291
== END 2017-01-27 15:15 | disposition home or self-care (01) ==
LOC: C.EDB 23:56 → EDSEX 23:56 → EDBD 23:56 → C.MED 01-27 05:38 → ENRESERV 01-27 06:01 → CANRESERV 01-27 06:01 → ENRESERV 01-27 06:05
PROVIDERS: ADMIT Hospitalist; ATTEND Internal Medicine
DX: R07.9 Chest pain, unspecified (principal); I10 Essential (primary) hypertension; E78.5 Hyperlipidemia, unspecified; K76.9 Liver disease, unspecified; I72.8 Aneurysm of other specified arteries; H81.09 Meniere's disease, unspecified ear; H91.90 Unspecified hearing loss, unspecified ear; Z79.899 Other long term (current) drug therapy; Z82.49 Family history of ischemic heart disease and other diseases of the circulatory system